=== PATIENT | male | born 1950 | race Hispanic/Latino ===

== ENCOUNTER → 2018-01-18 | Day surgery (SDC) | payer MEDICARE ==
[2018-01-17 11:44] LABS: BASOPHILS # (AUTO) 0.1 (0.0-0.1); BASOPHILS % 0.9 % (0.0-1.0); EOSINOPHILS # (AUTO) 0.1 (0.0-0.4); HEMATOCRIT 45.8 % (38.2-49.6); HEMOGLOBIN 15.6 g/dL (14.0-18.0); LYMPHOCYTES # (AUTO) 1.8 (1.0-3.2); LYMPHOCYTES % 19.3 % (18.0-39.1); MEAN CORPUSCULAR HEMOGLOBIN 30.1 pg (28-32); MEAN CORPUSCULAR HGB CONC 34.1 g/dL (31-35); MEAN CORPUSCULAR VOLUME 88.4 fL (81-99); MONOCYTES # (AUTO) 0.8 (0.2-0.8); MONOCYTES % 8.3 % (4.4-11.3); NEUTROPHILS # (AUTO) 6.6 (2.1-6.9); NEUTROPHILS % 69.5 % (38.7-80.0); PLATELET COUNT 298 x10e3/uL (140-360); RED BLOOD COUNT 5.18 x10e6/uL (4.3-5.7); RED CELL DISTRIBUTION WIDTH 12.9 % (11.7-14.4)
--- NOTE | 2018-01-17 12:03 | Diagnostic Imaging Report ---
EXAMINATION: CHEST 2 VIEWS COMPARISON: None FINDINGS: TUBES and LINES: None. LUNGS: Lungs are well inflated. Lungs are clear. There is no evidence of pneumonia or pulmonary edema. PLEURA: No pleural effusion or pneumothorax. HEART AND MEDIASTINUM: The cardiomediastinal silhouette is unremarkable. Prominence of the pulmonary arteries. Atherosclerotic aortic calcifications. BONES AND SOFT TISSUES: No acute osseous lesion. Soft tissues are unremarkable. UPPER ABDOMEN: No free air under the diaphragm. IMPRESSION: No acute radiographic abnormality. Prominence of the pulmonary arteries could reflect pulmonary arterial hypertension. Signed by: Dr. Rosario Liu MD on 01/17/2018 11:59 AM
[~2018-01-18] MED LIST: ATENOLOL50 MG; ATORVASTATIN CA10 MG PO; CEFTRIAXONE SOD 1 GM VIAL ONE; DEXAMETHASONE SOD PHOS INJ 4 MG/ML VIAL ONE; FENTANYL CITRATE/PF 100MCG/2 ML INJ ONE; IOPAMIDOL 610MG/1ML 300 MG/ML VIAL IV ONE; LIDOCAINE HCL 2% LOCAL INJ 5 ML SDV VIAL INJ ONE; MIDAZOLAM HCL 2 MG/2 ML VIAL ONE; ONDANSETRON HCL INJ 2 MG/ML VIAL ONE; PROPOFOL IV EMULSION 10 MG/ML 20 ML VIAL ONE; SEVOFLURANE INHAL SOLN 250 ML PEN BTL ONE; TAMSULOSIN HCL0.4 MG
--- OUTSIDE RECORDS SUMMARY | 2018-01-18 08:42 | XMS REPORT ---
Author [facility] Address Unknown Phone Unavailable Care Team Providers Care [employer] Name Role Phone MIKAEL BOLTON Unavailable Unavailable Problems This patient has no known problems. Allergies, Adverse Reactions, Alerts This patient has no known allergies or adverse reactions. Medications This patient has no known medications. Results Test Description Test Time Test Comments Text Results Atomic Results Result Comments CHEST 2 VIEWS 2018-01-17 11:57:00 [place] [address] Patient Name: IVETTE TREJO MR #: [id number] : 1950 Age/Sex: 67/M Req #: [id number] Adm Physician: Ordered by: MIKAEL BOLTON MD Report #: [id number] Location: OR Room/Bed: Procedure: [id number] DX/CHEST 2 VIEWS Exam Date: 01/17/18 Exam Time: 1135 REPORT STATUS: Signed EXAMINATION: CHEST 2 VIEWS COMPARISON: None FINDINGS: TUBES and LINES: None. LUNGS: Lungs are well inflated. Lungs are clear. There is no evidence of pneumonia or pulmonary edema. PLEURA: No pleural effusion or pneumothorax. HEART AND MEDIASTINUM: The cardiomediastinal silhouette is unremarkable. Prominence of the pulmonary arteries. Atherosclerotic aortic calcifications. BONES AND SOFT TISSUES: No acute osseous lesion. Soft tissues are unremarkable. UPPER ABDOMEN: No free air under the diaphragm. IMPRESSION: No acute radiographic abnormality. Prominence of the pulmonary arteries could reflect pulmonary arterial hypertension. Signed by: Dr. George Liu MD on 01/17/2018 11:59 AM Dictated By: GEORGE LIU MD [id number] Transcribed By: SUSU on 01/17/18 1151 COPY TO: IMKAEL BOLTON MD
--- OUTSIDE RECORDS SUMMARY | 2018-01-18 08:42 | XMS REPORT ---
Author Author Admin, [facility] Address [address] [place] [id number] Phone Allergies, Adverse Reactions, Alerts Allergy Name Reaction Description Start Date Severity Status Provider No Known Allergies Angeli Marquis ACADEMIC PROGRAM SPECIALIST Conditions or Problems Problem Name Problem Code Onset Date Status Entry Date Provider Comment Standard Description Annotate Colon cancer screening V76.51 Active Mai Catherine MD Screening for malignant neoplasms of colon Screening for prostate cancer V76.44 Active Mai Catherine MD Screening for malignant neoplasms of prostate Annual exam V72.31 Active Mai Catherine MD Routine gynecological examination Benign prostatic hyperplasia 600.00 Active Mai Catherine MD Hypertrophy (benign) of prostate without urinary obstruction and other lower urinary tract (LUTS) Coronary artery disease 414.00 Active Mai Catherine MD Coronary atherosclerosis of unspecified type of vessel, [place] or graft HYPERTENSION 401.9 Active Mai Catherine MD Unspecified essential hypertension Onychomycosis 110.1 Active Mai Catherine MD Dermatophytosis of nail Medication List Medication Instructions Start Date Stop Date Generic Name NDC Status Provider Patient Instruction PENLAC 8 % EXTERNAL SOLUTION Apply to afected nail once daily CICLOPIROX 37695853190 Active Emi Camarena PIPEFITTER Active ATENOLOL 25 MG ORAL TABLET 1 by mouth every day ATENOLOL 74977630524 Active Mai Catherine MD Active ATORVASTATIN CALCIUM 10 MG ORAL TABLET one tablet by mouth once daily ATORVASTATIN CALCIUM 77686078257 Active Mai Catherine MD Active TAMSULOSIN HCL 0.4 MG ORAL CAPSULE one tablet by mouth twice daily TAMSULOSIN HCL 80108077433 Active Mai Catherine MD Active TERBINAFINE HCL 250 MG ORAL TABLET one tablet my mouth once daily TERBINAFINE HCL 250 MG ORAL TABLET 375004 TERBINAFINE HCL Inactive JUBLIA 10 % EXTERNAL SOLUTION Apply to affected nail once daily EFINACONAZOLE 35695783990 No Longer Active Mai Catherine MD Active TERBINAFINE HCL 250 MG ORAL TABLET one tablet my mouth once daily TERBINAFINE HCL 58082278462 No Longer Active Mai Catherine MD Active Immunizations Vaccine Administration Date Value Standard Description influenza immunization (Flu Vax) has been administered given influenza virus vaccine, unspecified formulation PEDIATRIC PNEUMOCOCCAL VACCINE ([id number]) #1 given pneumococcal conjugate vaccine, 13 valent Vital Signs Date Name Value Unit Range Description blood pressure, diastolic 72 mm[Hg] BP [place] blood pressure, systolic 113 mm[Hg] BP sys pulse rate E&M 61 /min Heart rate blood pressure, diastolic 76 mm[Hg] BP [place] blood pressure, systolic 134 mm[Hg] BP sys pulse rate E&M 67 /min Heart rate blood pressure, diastolic 77 mm[Hg] BP [place] blood pressure, systolic 121 mm[Hg] BP sys height E&M 69 [in_us] Bdy height pulse rate E&M 62 /min Heart rate respiratory rate E&M 17 /min Resp rate temperature E&M 98.4 [degF] Body temperature weight E&M 183.20 [lb_av] Weight Measured blood pressure, diastolic 96 mm[Hg] BP [place] blood pressure, systolic 145 mm[Hg] BP sys height E&M 69 [in_us] Bdy height pulse rate E&M 56 /min Heart rate respiratory rate E&M 18 /min Resp rate temperature E&M 98.1 [degF] Body temperature weight E&M 182.20 [lb_av] Weight Measured Diagnostic Results Date Name Value Unit Range Description Lab Report: Comp. Metabolic Panel (14), Lipid Panel - Chemistry calcium, serum 9.4 mg/dL 8.6-10.2 urea nitrogen, blood 14 mg/dL 8-27 urea nitrogen/creatinine ratio, serum 15 10-22 Lab Report: Comp. Metabolic Panel (14), Lipid Panel - Genetics/fertility eGFR if 100 mL/min/1.73m2 >59 Lab Report: Comp. Metabolic Panel (14), Lipid Panel - Chemistry creatinine, serum 0.93 mg/dL 0.76-1.27 chloride, serum 101 mmol/L 96-106 cholesterol, serum 141 mg/dL 392-989 2073/02/07 triglyceride, serum, fasting 114 mg/dL 0-149 bilirubin, serum, total 0.4 mg/dL 0.0-1.2 Estimated Glomerular Filtration Rate (calc) 86 mL/min/1.73m2 >59 carbon dioxide, venous blood 21 mmol/L 18-29 protein, total, serum 7.3 g/dL 6.0-8.5 sodium, serum 139 mmol/L 381-958 9508/02/07 HDL cholesterol, serum 37 mg/dL >39 blood glucose, random 91 mg/dL 65-99 potassium, serum 4.3 mmol/L 3.5-5.2 albumin/globulin ratio, serum 1.8 1.1-2.5 alkaline phosphatase, serum 80 U/L 39-117 globulin, serum 2.6 1.5-4.5 aspartate aminotransferase (SGOT), serum 29 U/L 0-40 alanine aminotransferase (SGPT), serum 33 U/L 0-44 albumin, serum 4.7 g/dL 3.6-4.8 LDL cholesterol, serum 81 mg/dL 0-99 very low density lipoproteins 23 mg/dL 5-40 Encounters Date Encounter Provider Code Facility 18:16:02 CDT Est Patient Exp Problem - 70238 Mai Catherine MD CPT-46036 [facility] Procedures Code Procedure Name Date Entry Date Standard Description CPT-63683 New Patient Well Exam (40 - 64 Yrs) - [address] 16:46:43 EXTENSION SUPERVISOR CPT-55102 Prevnar (PCV13) IM 09:28:23 EXTENSION SUPERVISOR CPT-04374 INFLUENZA VACCINE QUADRIVALENT 3 YRS PLUS IM 09:28:23 EXTENSION SUPERVISOR
[2018-01-18 11:40] VITALS: BP 151/88
--- NOTE | 2018-01-18 13:13 | Operative Report ---
DATE OF PROCEDURE: January 18, 2018 PREOPERATIVE DIAGNOSIS: Microscopic hematuria. POSTOPERATIVE DIAGNOSIS: Microscopic hematuria with urethral stricture disease and benign prostatic hypertrophy. OPERATIONS PERFORMED 1. Cystourethroscopy with calibration and dilation of urethral stricture (entirely separate procedure for the urethral stricture disease). 1. Cystourethroscopy with left ureter catheterization and left retrograde pyelogram (separate procedure for the microscopic hematuria). 2. Cystourethroscopy with right ureter catheterization and right retrograde pyelogram (separate procedure for the microscopic hematuria). 3. Supervision of fluoroscopy. 4. Interpretation of retrograde pyelography. ANESTHESIA: General. ESTIMATED BLOOD LOSS: Minimal. COMPLICATIONS: None. INDICATIONS FOR PROCEDURE: Mr. Carpenter is a very pleasant 67-year-old male with a history of recurrent microscopic hematuria. He and I had a long discussion in regard to the alternatives, the risks and benefits including doing nothing, cystoscopy with IVP, retrograde pyelograms, renal ultrasound. Due to the nephrotoxic risks of dye, he elected to proceed with retrograde pyelograms. PROCEDURE IN DETAIL: After informed consent was obtained, the patient was taken to the operative suite. He was placed supine on the operating table and underwent general anesthesia by the anesthesia service. He was then placed in the dorsal lithotomy position and sterilely prepped and draped for cystoscopy. A 21-[place] cystoscope was inserted per urethra. There was a, my caliber, approximately 16- to 18-[place] bulbar urethral stricture. This was dilated with the scope. There was trilobar prostatic hypertrophy. Panendoscopy of the bladder revealed a moderate degree of trabeculation and decreased capacity. There were no tumors. There were no stones. Bilateral retrograde pyelograms were performed, which revealed distal J-hooking, otherwise normal. The bladder was drained. The patient was awakened from anesthesia and transported to the recovery room in excellent condition. SUPERVISION OF FLUOROSCOPY AND INTERPRETATION OF RETROGRADE PYELOGRAPHY: I was present throughout the entire procedure, and I supervised fluoroscopy. There was no radiologist present at any time during this procedure. Attention was turned toward the left and right ureteral orifices, which were catheterized with an 8-[place] cone-tipped catheter. In a retrograde fashion, contrast was injected, revealing delicate ureters, delicate pelvicaliceal systems, no evidence of filling defects, no evidence of hydronephrosis. IMPRESSION: Normal retrograde pyelograms. Job#: [id number]
== END | disposition home or self-care (01) ==
LOC: OR 08:30
PROVIDERS: ATTEND Urology
DX: N35.912 Unspecified bulbous urethral stricture, male (principal); N32.89 Other specified disorders of bladder; N40.1 Benign prostatic hyperplasia with lower urinary tract symptoms; N13.8 Other obstructive and reflux uropathy; R35.1 Nocturia; R97.20 Elevated prostate specific antigen [PSA]; Z91.19 Patient's noncompliance with other medical treatment and regimen; I10 Essential (primary) hypertension; I44.0 Atrioventricular block, first degree; Z01.810 Encounter for preprocedural cardiovascular examination; Z01.812 Encounter for preprocedural laboratory examination; Z01.818 Encounter for other preprocedural examination
CPT/HCPCS: 36415; 52281; 71046; 74420; 85025; 93005; C1758; J0696; J1100; J2001; J2250; J2405; J2704; Q9967